=== PATIENT | male | born 1995 | race Hispanic/Latino ===

== ENCOUNTER 2016-07-14 14:08 | Emergency (ER) | payer OTHER ==
[~2016-07-14] VITALS: Ht 170.2 cm; Wt 71.8 kg
[2016-07-14 14:11] VITALS: PULSE 92; RESP 16; O2SAT 98
--- NOTE | 2016-07-14 14:29 | ED.REPORT ---
HPI-Chest Pain Under 40 Date of Service Jul 14, 2016 ED Provider: Hernan Trivedi Patient is a 20 year old male who presents to the ED complaining of left lower front rib pain that waxes and wanes onset one week ago. He states that his pain is "not sharp but noticeable" but does not radiate to his back. He denies cough , fever, chills, or any other symptoms. Associated symptoms include sharp pain with deep breathing. He is recovering from a cold. 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 He claims he wears a respirator but has been taking it off more frequently to wipe his runny nose. Nursing Notes Stated Complaint: LEFT LOWER RIB PAIN Chief Complaint: General Complaint Nursing Notes Reviewed: Yes Allergies: Coded Allergies: ibuprofen (Verified Allergy, Mild, HIVES, 04/12/13) Potassium Clavulanate (Verified Allergy, Unknown, 11/20/12) amoxicillin trihydrate (Verified Allergy, Unknown, 04/12/13) General Time Seen by MD: 14:29 Chief Complaint Other (Left Lower Rib pain ) Hx Obtained From: Patient Arrived By: Walk-in Sudden in Onset?: Yes Onset Occurred: 1 week ago Symptom Duration: Since onset Similar Sx Previous: No Risk Factors )( CAD Risk Stratification SmokingNo Diabetes mellitus, No Hyperlipidemia, No Hypertension Risk factors reviewed )( PE Risk Stratification Previous DVT Previous PENo Coagulation Disorder, No , No Surgery Last 60 Days Risk factors reviewed Past Medical History Past Medical History Healthy Past Surgical History Denies Smoking History Never Smoker Social History Other Social History: Good social support, Lives with parents Ambulatory Status Independent Review of Systems Constitutional: Denies: Chills, Fever Respiratory: Denies: Non-productive cough GI: Reports: Abdominal pain (L Lower front rib pain) Complete sys rev & neg: except as marked. Physical Exam Initial Vital Signs Vital Signs (First) Date Time Temp Pulse Resp B/P Pulse Ox O2 Delivery O2 Flow Rate FiO2 07/14/16 14:11 36.6 92 16 98 Room Air 07/14/16 15:20 122/74 Initial VS: Reviewed Head / Eyes: Atraumatic, Normocephalic Skin: Warm, Dry Neurologic: Alert, Oriented, Nonfocal Psychiatric: Mood/affect normal, Behavior normal, Normal thought content General/Constitutional: Awake, Alert, Well appearing, Well developed Respiratory / Chest: No respiratory distress Cardiovascular: Heart rate NL, Regular rhythm, Heart sounds NL Abdomen: No guarding, No rebound, No palpable mass Beneath L coastal margin mild tenderness Re-Eval/Medical Decision Re-Evaluation/Progress : Time of Eval: 15:09 Re-Evaluation/Progress Note: Discussed plan for discharge with close follow up. Patient understands and agrees with plan. All questions addressed at this time. Counseled Regarding: Diagnosis, Need for follow-up, When/why to return to ED Discharge & Departure Primary Impression: Left upper quadrant pain Disposition: Home Discharge Condition All VS Reviewed: Yes Condition: Stable Patient Instructions: Acute Abdominal Pain (ED) Additional Instructions: Take ibuprofen 800 mg every 8 hours. Let us just see what happens over the next few days. I do not suspect any dangerous cause for this. If the symptoms persist into next week, make an appointment and see Dr. Oneil or Saturday of the coming week. Referrals: Angelina Oneil MD (PCP) Scribe Attestation Portions of this note were transcribed by Cherelle Madrigal. I, Dr. Trivedi personally performed the history, physical exam and medical decision-making; I reviewed and confirmed the accuracy of the information in the transcribed note. Signed by: Cherelle Madrigal 07/14/16, 0130 copies to: Angelina Oneil MD, Kirk H MD Jul 14, 2016 14:29 CHERELLE MADRIGAL Jul 14, 2016 14:55
[2016-07-14 15:20] VITALS: BP 122/74; PULSE 89; RESP 18; O2SAT 99
== END 2016-07-14 15:21 | disposition home or self-care (01) ==
LOC: SED 14:08
DX: R10.12 Left upper quadrant pain (principal); R09.89 Other specified symptoms and signs involving the circulatory and respiratory systems; Z88.6 Allergy status to analgesic agent; Z88.0 Allergy status to penicillin